=== PATIENT | female | born 1985 | race Caucasian/White ===

== ENCOUNTER 2017-07-30 12:53 | Day surgery (SDC) | payer OTHER, SELFPAY ==
[~2017-07-30] VITALS: Ht 167.6 cm; Wt 127.5 kg
[~2017-07-30 12:53] MED LIST: AMOCLA500 PO; B Complex #11 EACH PO; BIRTH CONTROL PILL; CYCL10 PO; Coumadin5 MG PO; DIAZ5 PO; HERBLAX PO; HYDACE5325 PO; IBUP600 PO; IRON 100-VITAM1 EACH PO; Lovenox100 MG/1 M SC; Mononessa1 EACH PO; OXYC5; Percocet 10-321 EACH PO; Percocet 5-3251 EACH PO; RXHYD5325 PO; STOOL SOFTENER100 MG; SUMA20NI; TOPI100 PO; [UNRECOGNIZED DRUG - OTHER]
== END 2017-07-30 17:20 | disposition home or self-care (01) ==
LOC: ORSCSDS 12:53
PROVIDERS: Orthopaedic Surgery
PROC: 0SCC4ZZ Extirpation of Matter from Right Knee Joint, Percutaneous Endoscopic Approach (ICD-10-PCS; principal; 2017-07-30 14:15)
PROC: 0SBC4ZZ Excision of Right Knee Joint, Percutaneous Endoscopic Approach (ICD-10-PCS; principal; 2017-07-30 14:15)
DX: M22.41 Chondromalacia patellae, right knee (principal); M23.41 Loose body in knee, right knee
CPT/HCPCS: J0171; J0690; J2250; J2405; J3010

== ENCOUNTER → 2018-12-15 | Outpatient (CLI) | payer OTHER ==
[2018-12-17 16:06] LABS: HPV 16 Negative (Negative); HPV 18 Negative (Negative); HPV OTHER HR TYPES Positive (Negative)
== END | disposition home or self-care (01) ==
LOC: LAB 16:24 → LAB SHORT 16:24
PROVIDERS: Obstetrics & Gynecology
DX: Z01.419 Encounter for gynecological examination (general) (routine) without abnormal findings (principal)
CPT/HCPCS: 87624; 87625; G0123

== ENCOUNTER → 2018-12-27 | Outpatient (CLI) | payer OTHER | END | disposition home or self-care (01) | LOC: LAB EV 10:17 → LAB SHORT 10:17 | DX: R30.0 Dysuria (principal) | CPT/HCPCS: 87077; 87086; 87186 ==

== ENCOUNTER → 2020-06-27 | Outpatient (CLI) | payer OTHER ==
[~2020-06-27] MED LIST changes: +IBU800 M1 PO; +LABE100 PO; +PRENATAL TABLE1 EAC2 PO
== END | disposition home or self-care (01) ==
LOC: LAB 16:45
DX: Z34.83 Encounter for supervision of other normal pregnancy, third trimester (principal); Z3A.36 36 weeks gestation of pregnancy
CPT/HCPCS: 87081; 87150

== ENCOUNTER 2020-09-20 16:31 | Emergency (ER) | payer OTHER ==
[~2020-09-20] VITALS: Ht 167.6 cm; Wt 133.8 kg
== END 2020-09-20 18:10 | disposition home or self-care (01) ==
LOC: ER 16:31
DX: S86.001A Unspecified injury of right Achilles tendon, initial encounter (principal); Z88.2 Allergy status to sulfonamides; Z88.1 Allergy status to other antibiotic agents; Z88.8 Allergy status to other drugs, medicaments and biological substances; Z79.899 Other long term (current) drug therapy; X58.XXXA Exposure to other specified factors, initial encounter
CPT/HCPCS: 93971; 99283-25

== ENCOUNTER → 2022-03-12 | Outpatient (CLI) | payer OTHER ==
[2022-03-13 15:09] LABS: HPV 16 Negative (Negative); HPV 18 Negative (Negative); HPV OTHER HR TYPES Negative (Negative)
== END | disposition home or self-care (01) ==
LOC: LAB SHORT 16:42 → LAB 16:42
PROVIDERS: Obstetrics & Gynecology
DX: Z12.4 Encounter for screening for malignant neoplasm of cervix (principal); R30.0 Dysuria
CPT/HCPCS: 87086; 87624; G0123

== ENCOUNTER 2024-11-24 08:38 | Day surgery (SDC) | payer OTHER ==
[~2024-11-24] VITALS: Ht 167.6 cm; Wt 139.2 kg
[2024-11-24] VITALS (11 sets, daily range): BP systolic 107–156; BP diastolic 58–93
[~2024-11-24 08:38] MED LIST changes: +ESTARYLLA 0.251 EACH PO; +Lactated Ringer's 1,000 ML IV SCH; +MOUNJARO2.5 MG/0.5 PO; +SERT100 PO; +TOPI25 PO
[2024-11-24] MEDS ORDERED: Bupivacaine 0.5% W/EPI 1:200000 SDV 30 ML Vial ONE ×2 (09:37→09:54)
[2024-11-24] MEDS ORDERED: FentaNYL Citrate 50 MCG/ML 2 ML Injection ONE (09:42)
[2024-11-24] MEDS ORDERED: propofoL 20 ML IV ONE ×2 (09:42)
[2024-11-24] MEDS ORDERED: Midazolam HCl 1MG / ML 2ML Vial ONE (09:42)
[2024-11-24] MEDS ORDERED: Lidocaine HCl 2% 20 ML MDV ONE (09:43)
[2024-11-24] MEDS ORDERED: Rocuronium Bromide 10 MG/ML 5ML Injection IV ONE (09:43)
[2024-11-24] MEDS ORDERED: Dexamethasone Sod Phos 10 MG/ML 1ML VIAL ONE (09:43)
--- NOTE | 2024-11-24 09:51 | NUR ---
History, Chart, Medications and Allergies reviewed before start of procedure.Pre-Op teaching done. Pt verbalizes understanding. Patient States Post-Procedure ride home has been arranged. Pt belongings to OR with patient. Pts eyeglasses to PACU with pt label. Pts jewelry removed and sent with pts mother. One non-removable earring remains in the R ear, covered with paper tape, refusal to remove jewelry form has been signed by the pt.
[2024-11-24] MEDS ORDERED: Glycopyrrolate 0.2 MG/ML 5ML VIAL ONE (10:21)
[2024-11-24] MEDS ORDERED: HYDROmorphone HCl/Pf 1MG SYR ONE ×3 (10:21→11:12)
[2024-11-24] MEDS ORDERED: Ketorolac Tromethamine 30mg Vial ONE (10:28)
[2024-11-24] MEDS ORDERED: Ondansetron HCl 2 MG / ML 2ML Vial ONE (10:28)
[2024-11-24] MEDS ORDERED: Sugammadex Sodium 200 MG/2ML SDV (100 MG/ML) ONE (10:28)
[2024-11-24] MEDS ORDERED: HYDROmorphone HCl/Pf 1MG SYR IV PRN ×2 (10:35)
[2024-11-24] MEDS ORDERED: Labetalol HCL 5 MG/ML 4ML Injection (Single Dose) IV PRN (10:35)
[2024-11-24] MEDS ORDERED: LORazepam 2 MG/ML 1ML Injection IV PRN (10:35)
[2024-11-24] MEDS ORDERED: FentaNYL Citrate 50 MCG/ML 2 ML Injection IV PRN ×2 (10:35→10:40)
[2024-11-24] MEDS ORDERED: Ondansetron HCl 2 MG / ML 2ML Vial IV PRN (10:40)
[2024-11-24] MEDS ORDERED: Albuterol 2.5 MG/3 ML VIAL INH PRN (10:40)
[2024-11-24] MEDS ORDERED: OxyCODONE 5 mg/Acetamin 325 mg TABLET PO PRN (10:50)
--- NOTE | 2024-11-24 11:33 | NUR ---
REPORT RECEIVED FROM MIA GREENE. VSS. PT ON RA. PT [id number]&OX4. PT ABLE TO REPOSITION SELF IN BED. PT REQUESTING PO FOOD AND FLUIDS AND TOLERATING THEM WELL. PT REPORTS 5/10 CRAMPING PAIN TO ABD WELL SOME NAUSEA, WHICH SHE STATES IS IMPROVING WITH PO INTAKE. PT HAS MONICA PAD IN PLACE WITH MINIMAL SPOTTING NOTED. PT ALSO HAS 2 DERMABOND SITES TO ABD THAT ARE CDI. PT MOTHER AT BEDSIDE.
--- NOTE | 2024-11-24 12:11 | NUR ---
Patient up to Ambulate independently. Gait steady. VSS AND CONSISTENT WITH PT BASELINE. PT REPORTS PAIN AND NAUSEA HAVE SUBSIDED AND VERBALIZES READINESS TO GO HOME. Discharge instructions reviewed with patient. Patient verbalizes understanding. Copy given to patient to take home. Dressing to procedure site clean, dry, intact with no visible drainage, swelling, erythema or bruising noted. Patient States Post-Procedure ride home has been arranged. Discharged via wheelchair to private car for ride home. PT BELONGINGS RETURNED TO PT.
== END 2024-11-24 12:11 | disposition home or self-care (01) ==
LOC: ORSCMMR 08:38 → ORD 10:00 → ORSCMMR 12:11
PROVIDERS: Obstetrics & Gynecology
PROC: 0UT74ZZ Resection of Bilateral Fallopian Tubes, Percutaneous Endoscopic Approach (ICD-10-PCS; principal; 2024-11-24 10:00)
DX: Z30.2 Encounter for sterilization (principal); E66.01 Morbid (severe) obesity due to excess calories; Z68.42 Body mass index [BMI] 45.0-49.9, adult; Z79.899 Other long term (current) drug therapy
CPT/HCPCS: 88305; A9270; J1100; J1171; J1885; J2250; J2405; J2704; J3010; J7120

== ENCOUNTER 2025-07-21 15:34 | Emergency (ER) | payer OTHER ==
[~2025-07-21] VITALS: Ht 167.6 cm; Wt 103.0 kg
[~2025-07-21 15:34] MED LIST changes: -Lactated Ringer's 1,000 ML IV SCH
[2025-07-21] MEDS ORDERED: Oxymetazoline 0.05% Nasal Relief Spray 15mL BTL ONE (16:00)
[2025-07-21 16:29] LABS: BASOPHILS ABSOLUTE AUTO 0.08 K/mm3 (0.00-0.23); BASOPHILS PERCENT AUTO 1 % (0-2); EOSINOPHILS ABSOLUTE AUTO 0.21 K/mm3 (0.00-0.68); EOSINOPHILS PERCENT AUTO 3 % (0-6); Hematocrit 38.4 % (33.0-51.0); Hemoglobin 13.3 g/dL (11.5-16.0); IMMATURE GRAN ABSOLUTE AUTO 0.02 K/mm3 (0.00-0.10); IMMATURE GRAN PERCENT AUTO 0 % (0-1); LYMPHOCYTES ABSOLUTE AUTO 2.65 K/mm3 (0.84-5.20); LYMPHOCYTES PERCENT AUTO 35 % (21-46); MONOCYTES ABSOLUTE AUTO 0.40 K/mm3 (0.16-1.47); MONOCYTES PERCENT AUTO 5 % (4-13); Mean Corpuscular HGB Conc 34.6 g/dL (31.5-36.5); Mean Corpuscular Volume 87 fL (80-100); NEUTROPHILS ABSOLUTE AUTO 4.24 K/mm3 (1.96-9.15); NEUTROPHILS PERCENT AUTO 56 % (41-73); NRBC ABSOLUTE 0.00 K/mm3 (0.00-0.02); NRBC Auto 0.0 /100 WBC (0.0-0.2); Platelet Count 299 K/mm3 (150-400); RDW Coefficient Variation 13.3 % (11.7-14.2); RDW Standard Deviation 42.0 fL (35.1-46.3)
[2025-07-21 16:54] LABS: Alanine Aminotransfer (ALT/SGP 16.0 U/L (12-78); Albumin, Blood 3.7 g/dL (3.4-5.0); Albumin/Globulin Ratio 1.0 (0.8-1.8); Anion Gap 7.0 mmol/L (3-11); Aspartate Aminotrans (AST/SGOT 12.0 U/L (12-37); Bilirubin, Total 0.4 mg/dL (0.1-1.0); Blood Urea Nitrogen 9.0 mg/dL (8-24); CO2, Blood 22.0 mmol/L (21-32); Calcium, Blood 8.8 mg/dL (8.5-10.1); Chloride, Blood 114.0 mmol/L (98-108); Creatinine, Blood 0.79 mg/dL (0.40-1.00); Globulin, Blood 3.8 g/dL (2.2-4.0); Glucose, Blood 100.0 mg/dL (70-99); Potassium, Blood 3.7 mmol/L (3.5-5.5); Sodium, Blood 139.0 mmol/L (136-145); Total Protein, Blood 7.5 g/dL (6.4-8.2)
[2025-07-21] MEDS ORDERED: Ketorolac Tromethamine 15mg Vial IV ONE (22:25)
[2025-07-21 22:30] VITALS: BP 118/66
== END 2025-07-21 22:40 | disposition home or self-care (01) ==
LOC: ER 15:34
PROVIDERS: Student in an Organized Health Care Education/Training Program
DX: R04.0 Epistaxis (principal); R51.9 Headache, unspecified; Z88.2 Allergy status to sulfonamides; Z88.8 Allergy status to other drugs, medicaments and biological substances; Z79.899 Other long term (current) drug therapy
CPT/HCPCS: 80053; 85025; 96374; 99283; J1885